=== PATIENT | male | born 1965 | race Caucasian/White ===

== ENCOUNTER 2017-05-21 14:32 | Emergency (ER) | payer OTHER ==
[~2017-05-21] VITALS: Ht 182.9 cm; Wt 102.1 kg
[2017-05-21 15:21] LABS: HEMOGLOBIN 14.7 g/dL (14.1-18.0); LYMPH # 2.2 K/mm3 (0.7-4.5); LYMPH % 26.3 % (10-50)
--- OUTSIDE RECORDS SUMMARY | 2017-05-21 15:42 | External Medical Summary Rpt | CCD ---
Author Author , MARTINEZ HENRIQUEZ Address Unknown Phone [email or web address] Purpose Continuity of Care Document - 05-21-2017 through 2016 Results Labs Lab Lab Date Result Refere Interp Status Commen Order Detail nces retati t Range on CBC w auto diff (05-21-2017 15:10) Automat = 0.1 0-0.2 complet ed 017 K/MM3 ed blood 15:10 basophi l count (count/ vo Baso % = 0.7 % 0.1-2.0 complet 017 ed 15:10 Automat = 0.2 0.0-0.4 complet ed 017 K/mm3 ed blood 15:10 eosinop hil count Automat = 2.0 % 0.1-12. complet ed 017 0 ed blood 15:10 eosinop hils/10 0 leukocy t Blood = 5.5 1.3-8.0 complet granulo 017 K/mm3 ed cytes 15:10 automat ed count (numb Granulo = 64.9 37.0-80 complet cyte 017 % .0 ed percent 15:10 age Blood = 43.5 42.0-52 complet hematoc 017 % .0 ed rit 15:10 (volume fractio n) Blood = 14.7 14.1-18 complet hemoglo 017 g/dL .0 ed bin 15:10 measure ment (mass/v olum Absolut = 2.2 0.7-4.5 complet e 017 K/mm3 ed lymphoc 15:10 yte count Lymphoc = 26.3 10-50 complet yte 017 % ed count, 15:10 blood, automat ed Mean = 28.6 27-31.2 complet corpusc 017 pg ed ular 15:10 hemoglo bin (MCH) determ Automat = 33.7 31.8-35 complet ed 017 g/dl .4 ed erythro 15:10 cyte mean corpusc ular h Automat = 84.9 82.2-97 complet ed 017 fl .8 ed erythro 15:10 cyte mean corpusc ular v Absolut = 0.5 0.1-1.0 complet e 017 K/mm3 ed monocyt 15:10 e count Terry % = 6.0 % 1.7-9.3 complet 017 ed 15:10 Automat = 7.7 7.4-10. complet ed 017 fl 4 ed blood 15:10 platele t mean volume sharita Blood = 263 142-424 complet platele 017 K/mm3 ed t count 15:10 Red = 5.13 4.6-6.2 complet blood 017 M/mm3 ed cell 15:10 count Automat = 13.1 11.5-17 complet ed 017 % .5 ed erythro 15:10 cyte distrib ution width Blood = 8.4 4.8-10. complet leukocy 017 K/MM3 8 ed vicky 15:10 count (number /volume )
--- OUTSIDE RECORDS SUMMARY | 2017-05-21 15:42 | External Medical Summary Rpt | CCD ---
Author Author [employer] Address Unknown Phone Unavailable Purpose Continuity of Care Document - through 2016
--- OUTSIDE RECORDS SUMMARY | 2017-05-21 15:42 | External Medical Summary Rpt | CCD ---
Author Author , MARTINEZ HENRIQUEZ Address Unknown Phone [email or web address] Purpose Continuity of Care Document - 05-21-2017 [...] 017 K/mm3 ed monocyt 15:10 e count [place] % = 6.0 % 1.7-9.3 complet 017 [...]
--- OUTSIDE RECORDS SUMMARY | 2017-05-21 15:43 | External Medical Summary Rpt | CCD ---
Demographics Preferred Language Kiswahili Marital Status Unknown Gnosticism Affiliation Unknown Race Unknown Ethnic Group Unknown Author Author , LILIANA HENRIQUEZ Address Unknown Phone [email or web address] Immunization Name Date Rout CVX Reac Dose Comm Prov Is Faci e tion ent ider Refu lity Give sed n Td 03-0 9 999 Hist H109 No H109 (jose 5-19 oric lt), 97 al Info adso rmat rbed ion - Sour ce Unsp ecif ied
--- OUTSIDE RECORDS SUMMARY | 2017-05-21 15:43 | External Medical Summary Rpt ---
Author Author [employer], [facility] Address Unknown Phone Unavailable Results CBC W Auto Differential panel in Blood Observa Value Referen Units Interpr Notes Date tion ce etation Range Basophils 0 - 0.2 K/MM3 Normal No May 21 informati 2016 3:10 [#/volume on in PM ] in source Blood by data Automated count Basophils 0.1 - 2.0 % Normal No May 21 / informati 2016 3:10 leukocyte on in PM s in source Blood by data Automated count Eosinophi 0.0 - 0.4 K/mm3 Normal No May 21 ls informati 2016 3:10 [#/volume on in PM ] in source Blood by data Automated count Eosinophi 0.1 - % Normal No May 21 ls/100 12.0 informati 2016 3:10 leukocyte on in PM s in source Blood by data Automated count Granulocy 1.3 - 8.0 K/mm3 Normal No May 21 vicky informati 2016 3:10 [#/volume on in PM ] in source Blood by data Automated count Granulocy 37.0 - % Normal No May 21 vicky/100 80.0 informati 2016 3:10 leukocyte on in PM s in source Blood by data Automated count Hematocri 42.0 - % Normal No May 21 t [Volume 52.0 informati 2016 3:10 on in PM Fraction] source of Blood data Hemoglobi 14.1 - g/dL Normal No May 21 n 18.0 informati 2016 3:10 [Mass/vol on in PM ume] in source Blood data Lymphocyt 0.7 - 4.5 K/mm3 Normal No May 21 es informati 2016 3:10 [#/volume on in PM ] in source Unspecifi data ed specimen by Automated count Lymphocyt 10 - 50 % Normal No May 21 es informati 2016 3:10 [#/volume on in PM ] in source Unspecifi data ed specimen by Automated count Erythrocy 27 - 31.2 pg Normal No May 21 te mean informati 2016 3:10 corpuscul on in PM ar source hemoglobi data n [Entitic mass] Erythrocy 31.8 - g/dl Normal No May 21 te mean 35.4 informati 2016 3:10 corpuscul on in PM ar source hemoglobi data n concentra tion [Mass/vol ume] by Automated count Erythrocy 82.2 - fl Normal No May 21 te mean 97.8 informati 2016 3:10 corpuscul on in PM ar volume source [Entitic data volume] by Automated count Monocytes 0.1 - 1.0 K/mm3 Normal No May 21 informati 2016 3:10 [#/volume on in PM ] in source Blood by data Automated count Monocytes 1.7 - 9.3 % Normal No May 21 /100 informati 2017 3:10 leukocyte on in PM s in source Blood by data Automated count Platelet 7.4 - fl Normal No May 21 mean 10.4 informati 2016 3:10 volume on in PM [Entitic source volume] data in Blood by Automated count Platelets 142 - 424 K/mm3 Normal No May 21 informati 2016 3:10 [#/volume on in PM ] in source Blood data Erythrocy 4.6 - 6.2 M/mm3 Normal No May 21 vicky informati 2016 3:10 [#/volume on in PM ] in source Amniotic data fluid Erythrocy 11.5 - % Normal No May 21 te 17.5 informati 2016 3:10 distribut on in PM ion width source [Entitic data volume] by Automated count Leukocyte 4.8 - K/MM3 Normal No May 21 s 10.8 informati 2016 3:10 [#/volume on in PM ] in source Blood data
--- OUTSIDE RECORDS SUMMARY | 2017-05-21 15:43 | External Medical Summary Rpt | CCD ---
Demographics Preferred Language Indonesian Marital Status Unknown Shinto Affiliation Unknown Race Unknown Ethnic Group Unknown Author Author , LILIANA HENRIQUEZ Address Unknown Phone [email or web address] Immunization Name Date Rout CVX Reac Dose Comm Prov Is Faci e tion ent ider Refu lity Give sed n Td 03-0 9 999 Hist H109 No H109 (jose 5-19 oric lt), 97 al Info adso rmat rbed ion - Sour ce Unsp ecif ied
--- NOTE | 2017-05-21 15:44 | Emergency Room Report ---
History of Present Illness Time Seen by 1529 Presenting Problem in Triage Pt arrived:Walked Presenting Problem:FEELS LIKE HIS CHEST HAIR IS BEING PLUCKED ON THE LEFT SIDE OF HIS CHEST BEGAN AN HR AGO WITHOUT RADIATION. NO ACTUAL PAIN OR CHEST PRESSURE. NO SOA. IS TRYING TO QUIT CHEWING NICOTINE GUM AND HE ALSO HAS A HISTORY OF ANXIETY Onset of symptoms date/time:/ or onset unknown for:MEDICAL HX UNKNOWN Treatment Prior to Arrival: TOOK A PIECE OF NICOTINE GUM [employer] Provided by:SELF Sepsis Risk Assessment: Temp: 97.0 B/P: 142/75 MAP: 97 Pulse: 85 Resp: 18 Recent fever? N Clinical Suspician of Infection? N Mental Status: 1 - Regular (Normal Baseline) Sepsis Risk:Low Sepsis Risk Have you (or family members/close friends) recently traveled outside the [place]? N If Yes, where/when: Have you had exposure to infectious disease within the past month? TB? Other? Specify: Comment The patient complains of intermittent chest discomfort that began about 2 hours ago. He describes very brief, fleeting pains that last up to about 5 seconds that feel like hairs being plucked from his anterior LEFT chest in the parasternal area. He denies associated symptoms, including nausea, vomiting, shortness of breath, or diaphoresis. Symptoms have now resolved after arrival in the emergency department. He does not have any known heart disease. He says he does suffer from anxiety. He says he has recently been on the Morgan diet and also taking a lot of powder laxative that she led to water. He is a former smoker. He has hypertension and hyperlipidemia. He does not have diabetes. No heart disease in first-degree relatives. ALLERGIES Coded Allergies: No Known Allergies (05/21/17) History Medical History General Anxiety? Yes Immunization Hx Ped.Immunizations UTD Yes DT/Tetanus 1-4 Years Ago Surgical Hx Previous Surgery?N Social History Smoking Hx Smoker: Former Smoker Tobacco: Yes Type N/A Review of Systems All Other Systems Reviewed and Negative Constitutional denies diaphoresis, denies fever Respiratory denies cough, denies shortness of breath Cardiovascular chest pain Gastrointestinal denies abdominal pain, denies nausea, denies vomiting Physical Exam Vital Signs Vital Signs Date Time Temp Pulse Resp B/P Pulse O2 O2 Flow FiO2 Ox Delivery Rate 05/21 1602 82 18 139/72 99 05/21 1452 97.0 85 18 142/75 99 General Appearance no apparent distress Eye Exam - bilateral eye normal exam, bilateral eye PERRL, bilateral eye EOMI Ear, Nose, Throat hearing grossly normal, normal ENT inspection Neck normal inspection, non-tender, supple, full range of motion Respiratory Status Yes: trachea midline, chest symmetrical, non tender chest. No: respiratory distress. Lung Sounds bilateral: normal breath sounds, lungs clear. Cardiovascular normal exam, regular rate/rhythm, no peripheral edema, no gallop, no JVD, no murmur, no rub, normal peripheral pulses Peripheral Pulses Pulses normal Yes Gastrointestinal normal bowel sounds, normal exam, non tender, soft, no organomegaly Extremities normal inspection, no calf tenderness, no pedal edema Neurologic alert, normal exam, oriented x 3 Mental status normal mood/affect Skin intact, normal color, warm/dry Medical Decision Making LABS/Meds/Orders Pt receiving controlled substance in ED? No Results/Orders Laboratory Tests 05/21/17 1510: Sodium 140, Potassium 4.4, Chloride 104, Carbon Dioxide 30, BUN 19 H, Creatinine 1.1, Estimated Creat Clear 113, Estimated GFR (MDRD) 70, Glucose 108 H, Calcium 9.2, Total Bilirubin 0.4, AST 36, ALT 37, Alkaline Phosphatase 79, Creatine Kinase 160, CK-MB (CK-2) Rel Index 1.6, CK and CKMB Interp 2.5, Troponin I < 0.02, Total Protein 7.8, Albumin 4.2, Globulin 3.6 H, Albumin/ Globulin Ratio 1.2, WBC 8.4, RBC 5.13, Hgb 14.7, Hct 43.5, MCV 84.9, RDW 13.1, Plt Count 263, MPV 7.7, Gran % 64.9, Gran # 5.5, Lymphocytes % 26.3, Monocytes % 6.0, Eosinophils % 2.0, Basophils % 0.7, Lymphocytes # 2.2, Monocytes # 0.5, Eosinophils # 0.2, Basophils # 0.1, PUBS MCHC 33.7, MCH 28.6 Current Medication Orders Sig/Vadim Start time Last Medication Dose Route Stop Time Status Admin Sodium Chloride 10 ML PRN PRN 05/21 1500 DCD IV 05/22 1456 Orders Procedure Date/time Status 12 LEAD EKG-MIGUEL (INITIAL) 05/21 1500 Active ELECTROCARDIOGRAM REQUEST 10/21 1457 Active CHEST(2 VIEWS-NOT PORTABLE) 05/21 1457 Active IV SALINE LOCK 05/21 1457 Active CBC WITH AUTO DIFF 05/21 1457 Complete CARDIAC ENZYMES 05/21 1457 Complete CHEM 12 PROFILE 05/21 1457 Complete CM/EKG CM/EKG Comments EKG interpreted by Memo Weber MD: Rhythm: sinus Rate: * [place]: normal Ectopy: none Conduction: normal ST Segment Changes: none T Wave Changes: none Q Waves: none No evidence of acute ischemia or injury No prior EKGs available for comparison XRAY/CT/US XRAY/CT/US XRAY chest Comment Chest x-ray interpreted by Memo Weber M.D. No infiltrate, pneumothorax, pleural effusion, or wide mediastinum. Progress - 3:55 PM:I estimate there is LOW risk for PULMONARY EMBOLISM, ACUTE CORONARY SYNDROME, OR THORACIC AORTIC DISSECTION, thus I consider the discharge disposition reasonable. The patient remains asymptomatic, symptom-free at this time Departure Departure Disposition DC Home or Self Care(routine) Clinical Impression Primary Impression: Atypical chest pain Condition STABLE Referrals [facility] (Family) Patient Instructions DI for Atypical Chest Pain Additional Instructions Additional instructions for CHEST PAIN: See your physician as soon as possible for further evaluation. Return immediately if worsening chest pain, vomiting, shortness of breath, fever, coughing of blood. ED Critical Care Critical Care No at 1708
[2017-05-21 15:52] LABS: BUN 19 mg/dL (7-18); GFR (ESTIMATED) 70 ML/MIN (>60)
[2017-05-21 16:02] VITALS: BP 139/72
--- NOTE | 2017-05-21 20:19 | RADIOLOGY REPORT PS360 ---
CHEST(2 VIEWS-NOT PORTABLE) HISTORY: CP chest pain 1 day. No trauma. Former smoker.. Patient Age: 52 years: Male Ordering Physician: ER TECHNIQUE: 2 view CXR COMPARISON :No previous studies FINDINGS The lungs are moderately well expanded and adequately clear with nothing definitely acute . No focal pneumonia. No pleural effusion. No pneumothorax. Heart, kurt, mediastinal structures appear satisfactory. Scant apical pleural scarring bilateral. Chest wall and T-spine appears satisfactory IMPRESSION: Lungs clear with nothing definitely acute.
== END 2017-05-21 16:02 | disposition home or self-care (01) ==
LOC: ER 14:32
PROVIDERS: Emergency Medicine
DX: R07.89 Other chest pain (principal); I10 Essential (primary) hypertension; E78.5 Hyperlipidemia, unspecified